=== PATIENT | male | born 1930 | race Hispanic/Latino ===

== ENCOUNTER 2016-09-13 09:23 | Day surgery (SDC) | payer MEDICARE ==
[2016-09-12 07:29] VITALS: BMI 23.2
[2016-09-13] MEDS ORDERED: Dexamethasone 4 mg/1 ml ONE (10:16)
[2016-09-13] MEDS ORDERED: Lidocaine 1% Inj (20ml) ONE ×2 (10:16→10:51)
[2016-09-13] MEDS ORDERED: Bupivacaine 0.5% Inj(30mL) ONE (10:16)
[2016-09-13] MEDS ORDERED: Midazolam 2 MG/2 ML VIAL ONE (11:14)
--- NOTE | 2016-09-13 12:19 | PCM.SURG1 ---
Surgeon's Initial Post Op Note - Surgeon's Notes Surgeon: Dr. Cooper Bravo DPM Foundry Manager: Dr. Kwaku Flood, PGY1 Type of Anesthesia: IV Sedation, Local (Right foot- 5mL's of 1:1 mixture of 0.5 % Marcaine plain to 1% lidocaine plain) Anesthesia Administered By: Dr. 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 Operative Findings: See dictation. Injectibles: 7 mL's of 0.5% Marcaine plain. Materials: 4-0 vicryl; 4-0 prolene Post-Operative Diagnosis: Same as above Operation Performed: Right foot PIPJ arthroplasty with distal PIPJ exostectomy Specimen/Specimens Removed: Rigth 2nd digit proximal phalynx bone Estimated Blood Loss: EBL {In ML}: 1 Blood Products Given: N/A Drains Used: No Drains Post-Op Condition: Good Date of Surgery/Procedure: 09/13/16 Time of Surgery/Procedure: 12:20
[2016-09-13] MEDS ORDERED: Lactated Ringer's 1,000 ML IV SCH (12:20)
[2016-09-13] MEDS ORDERED: Oxycodone/Acetaminophen 5/325 mg Tab PO PRN (12:22)
[2016-09-13 13:16] VITALS: RESP 20; TEMP 97.8
--- NOTE | 2016-09-13 13:33 | RAD ---
PROCEDURE: Right Foot Radiographs. HISTORY: s/p right foot surgery COMPARISON: None. FINDINGS: BONES: Normal. No fracture. JOINTS: There is joint space narrowing and degenerative changes in the 1st MTP joint without angulation SOFT TISSUES: Normal. OTHER FINDINGS: None. IMPRESSION: Joint space narrowing and degenerative changes in the 1st MTP joint
[2016-09-13 13:56] VITALS: BP 144/58; PULSE 56; O2SAT 99
--- NOTE | 2016-09-13 19:50 | OP ---
PROCEDURE DATE: 09/13/2016 PRIMARY SURGEON: Blayne Garcia DPM. MONITORING ANALYST: Kwaku Flood, PGY-1. ANESTHESIOLOGIST: Dr. Allison. ANESTHESIA TYPE: IV sedation with local. PREOPERATIVE DIAGNOSES: Right foot second digit proximal interphalangeal joint hammertoe deformity with proximal interphalangeal joint, medial and lateral exostoses. PREOPERATIVE DIAGNOSES: Right foot second digit proximal interphalangeal joint hammertoe deformity with proximal interphalangeal joint, medial and lateral exostoses. PROCEDURE PERFORMED: Right second digit PIPJ arthroplasty with distal PIPJ exostectomy. INDICATIONS: The patient is an 86-year-old male with the above stated diagnoses. The patient has exhausted all conservative treatment options at this time and is now seeking surgical intervention. The consent was signed after careful explanation of risks, benefits, complications and alternatives. No guarantees were neither given nor implied. PREPARATION: The patient was wheeled into the operating room and placed on the operating room table in a supine position. At this time, a timeout was performed for proper identification of the patient and procedure. IV sedation was then begun. Once IV sedation was confirmed to have been achieved, a local injection of 5 mL of a 1:1 mixture of 0.5% Marcaine plain to 1% lidocaine plain was then injected in a local block type fashion to the right foot. Once anesthesia was confirmed to have been achieved, a supramalleolar tourniquet was placed on the right ankle. The right foot was then prepped and draped in the usual sterile manner. The tourniquet was inflated to 250 mmHg and the procedure began. DESCRIPTION OF PROCEDURE: Attending was present during the entire case. Attention was then directed to the dorsal aspect of the right second digit proximal interphalangeal joint where a 3 cm longitudinal incision was made overlying the proximal interphalangeal joint. This incision, made with a #15 blade, was then extended down through the subcutaneous tissue layers using a # 15 blade. Attention and care was taken to avoid all neurovascular structures and all bleeders were ligated and cauterized using a Bovie as needed. Once at the level of the capsule of the joint, a transverse tenotomy was made and the head of the proximal phalanx was freed of its ligamentous and fibrous attachments. The extensor digitorum longus tendon was freed proximally and distally of its capsular attachments and reflected proximally and distally respectively. At this time, the base of the middle phalanx was examined. Medial and lateral exostoses were appreciated. Periosteum was reflected using a #15 blade to free the medial and lateral condyles of their fibrous and ligamentous attachments. At this time, an oscillating saw was introduced to the operative field and a sagittal plain cut was made of the middle phalanx to alleviate the medial and lateral prominent exostoses. Oscillating saw was then introduced to the head of the proximal phalanx where a sagittal plain cut was made and the head of the proximal phalanx was passed off the operative field to be sent for pathology and microbiology. At this time, bony prominences were removed by hand using a rongeur. Anatomic reduction was appreciated at this point and found to be adequate. The surgical site was then flushed with copious amounts of sterile saline. Capsule and extensor digitorum longus tendon were reapproximated using 4-0 Vicryl. Subcutaneous tissue was reapproximated using 4-0 Vicryl. Skin was reapproximated using 4-0 Prolene. 7mL's of 0.5% Marcaine plain was injected in a local block type fashion to right foot. Incision site was then dressed with Betadine-soaked Adaptic, 4 x 4 gauze, Kerlix and Rodríguez bandage. POSTOPERATIVE CONDITION: The patient was wheeled into the PACU area with vital signs stable and neurovascular status intact to the right foot. The patient will follow up with Dr. Garcia on an outpatient basis. Home care instructions and postoperative pain control medications were dispensed to the patient. Kwaku Flood DPM Blayne Garcia DPM cc: [id number] TT: 09/13/2016 19:50:13 naresh MUHAMMAD
== END 2016-09-13 14:20 | disposition home or self-care (01) ==
LOC: SDS 09:23
PROVIDERS: ATTEND Podiatrist
DX: M20.41 Other hammer toe(s) (acquired), right foot (principal); M89.9 Disorder of bone, unspecified; I10 Essential (primary) hypertension; E78.5 Hyperlipidemia, unspecified
CPT/HCPCS: 28285; 73630; 87070; 87075; 88304; 88311; J0690; J2250; J2405; J3010; J7120 ×2

== ENCOUNTER 2016-09-20 09:19 | Emergency (ER) | payer MEDICARE ==
[2016-09-20 09:19] VITALS: BMI 23.2
[2016-09-20 09:28] VITALS: O2SAT 97
--- NOTE | 2016-09-20 10:33 | ED PDOC ---
Arrival/HPI - General Chief Complaint: Rib Injury Time Seen by Provider: 09/20/16 09:37 Historian: Patient - History of Present Illness Narrative History of Present Illness (Text): 09/20/16 10:29 86yo male with PMHx of hypertension and PVD present with complaint of left sided rib pain s/p trauma 2days ago. States he slipped and fell, while trying to turn around two days ago, and landed on his left side. Notes that he had a surgery for hammer toe last week and has been on Toradol and Percocet, so he didn't have pain s/p trauma. States he didn't take any of his analgesic today and felt the pain for the first time today, when he placed his left arm on top of his bed, while trying to stand up. He denies chest pain, SOB, diaphoresis, hitting head any where, LOC, nausea, vomiting, focal weakness. Past Medical History - Provider Review Nursing Documentation Reviewed: Yes - Past Medical History Past Medical History: Non-Contributing - Cardiac Hx Hypertension: Yes - Pulmonary Hx Respiratory Disorders: No - Neurological Hx Neurological Disorder: Yes Other/Comment: ANEURYSM - HEENT Hx HEENT Disorder: No - Renal Hx Renal Disorder: No - Endocrine/Metabolic Hx Endocrine Disorders: No - Hematological/Oncological Hx Blood Transfusions: Yes (OVER 50YRS AGO) Hx Blood Transfusion Reaction: No - Integumentary Hx Dermatological Disorder: No Hx Basal Cell Carcinoma: No Hx Eczema: No Hx Melanoma: No Hx Psoriasis: No Hx Squamous Cell Carcinoma: No - Musculoskeletal/Rheumatological Hx Musculoskeletal Disorders: Yes Other/Comment: RECENT TOE SURGERY - Gastrointestinal Hx Gastrointestinal Disorders: No - Genitourinary/Gynecological Hx Genitourinary Disorders: No - Psychiatric Hx Psychophysiologic Disorder: No Hx Substance Use: No - Surgical History Hx Orthopedic Surgery: Yes - Anesthesia Hx Anesthesia Reactions: No Hx Malignant Hyperthermia: No - Suicidal Assessment Feels Threatened In Home Enviroment: No Family/Social History - Physician Review Nursing Documentation Reviewed: Yes Family/Social History: Unknown Family HX Smoking Status: Never Smoked 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[employer]) Hx Substance Use: No Hx Substance Use Treatment: No Allergies/Home Meds Allergies/Adverse Reactions: Allergies No Known Allergies Allergy (Verified 09/20/16 09:21) Home Medications: Home Meds Medication Instructions Recorded Confirmed Esomeprazole Magnesium [Nexium] 20 mg PO QAM 05/05/13 09/20/16 Hydrochlorothiazide [HCTZ] 12.5 mg PO DAILY 05/25/15 09/20/16 Lamotrigine [Lamictal] 100 mg PO BID 05/25/15 09/20/16 Trandolapril/Verapamil HCl [Tarka 1 each PO QAM 05/25/15 09/20/16 ER 4-240 mg Tablet] Glucosamine/MSM/Chondroitin A 1 tab PO DAILY 09/07/16 09/20/16 [Triple Flex Caplet] Multivitamin with Minerals [One 1 each PO DAILY 09/07/16 09/20/16 Daily Complete] Review of Systems - Physician Review All systems were reviewed & negative as marked: Yes - Review of Systems Constitutional: Normal Eyes: Normal ENT: Normal Respiratory: Normal Cardiovascular: Normal Gastrointestinal: Normal Genitourinary Male: Normal Musculoskeletal: Arthralgias (Left ribs pain) Skin: Normal Neurological: Normal Endocrine: Normal Hemo/Lymphatic: Normal Psychiatric: Normal Physical Exam Vital Signs Reviewed: Yes Vital Signs Temp Pulse Resp BP Pulse Ox 09/20/16 11:05 98.2 F 70 18 145/68 97 09/20/16 09:23 98.0 F 75 16 162/63 H 97 Temperature: Afebrile Blood Pressure: Normal Pulse: Regular Respiratory Rate: Normal Appearance: Positive for: Well-Appearing, Non-Toxic, Comfortable Pain Distress: None Mental Status: Positive for: Alert and Oriented X 3 - Systems Exam Head: Present: Atraumatic, Normocephalic Pupils: Present: PERRL Extroacular Muscles: Present: EOMI Conjunctiva: Present: Normal Mouth: Present: Moist Mucous Membranes Neck: Present: Normal Range of Motion Respiratory/Chest: Present: Clear to Auscultation, Good Air Exchange, Tender to Palpation (Focal tenderness over lateral left ribs). No: Respiratory Distress, Accessory Muscle Use, Wheezes, Decreased Breath Sounds, Rales, Retracting, Rhonchi, Tachypneic Cardiovascular: Present: Regular Rate and Rhythm, Normal S1, S2. No: Murmurs Abdomen: Present: Normal Bowel Sounds. No: Tenderness, Distention, Peritoneal Signs Back: Present: Normal Inspection Upper Extremity: Present: Normal Inspection. No: Cyanosis, Edema Lower Extremity: Present: Normal Inspection. No: Edema Neurological: Present: GCS=15, CN II-XII Intact, Speech Normal Skin: Present: Warm, Dry, Normal Color. No: Rashes Psychiatric: Present: Alert, Oriented x 3, Normal Insight, Normal Concentration Medical Decision Making ED Course and Treatment: 09/20/16 10:50 Left ribs/chest xray - Nondisplaced fracture of the 9th rib. No PTX noted Xray finding was DW the and was advised to f/u with his PMD. Rx of Tramadol was given. Pt was hemodynamically stable and comfortable in ED. Result was DW the pt. He notes he still have percocet at home and was advised to continue as was directed. TRT ED for any new or worsening symptoms. - RAD Interpretation Radiology Orders: 09/20/16 09:43 RIBS LEFT & PA CHEST [RAD] Stat - Medication Orders Current Medication Orders: Discontinued Medications Tramadol HCl (Ultram) 50 mg PO STAT STA Stop: 09/20/16 09:44 Last Admin: 09/20/16 09:50 Dose: 50 mg Disposition/Present on Arrival - Present on Arrival Any Indicators Present on Arrival: No History of DVT/PE: No History of Uncontrolled Diabetes: No Urinary Catheter: No History of Decub. Ulcer: No History Surgical Site Infection Following: None - Disposition Have Diagnosis and Disposition been Completed?: Yes Diagnosis: Rib sprain, Rib fracture Disposition: HOME/ ROUTINE Disposition Time: 10:55 Patient Plan: Discharge Condition: STABLE Discharge Instructions (ExitCare): Rib Contusion (ED) Additional Instructions: follow up with your Doctor Return to ED for any new or worsening symptoms Prescriptions: traMADol [Ultram] 50 mg PO TID #10 tab Referrals: Frank Jiang MD [Primary Care Provider] - Follow up with primary
[2016-09-20 11:16] VITALS: BP 145/68; PULSE 70; RESP 18; TEMP 98.2
--- NOTE | 2016-09-20 11:28 | RAD ---
PROCEDURE: Radiographs of the Chest and Left Ribs. HISTORY: ribs pain s/p trauma COMPARISON: 08/22/2016. TECHNIQUE: Frontal radiograph of the chest and multiple oblique radiographs of the left ribs were obtained. FINDINGS: LEFT RIBS: There is an acute nondisplaced fracture in the anterior 9th rib. There is diffuse bone demineralization. . LUNGS: The lungs are clear. PLEURA: No pneumothorax or pleural fluid. CARDIOVASCULAR: Normal sized heart. No pulmonary vascular congestion. OTHER FINDINGS: None. IMPRESSION: Acute nondisplaced fracture in the left anterior 9th rib. Clear lungs. No pneumothorax. Important findings were discussed with FRAN Baker on 09/20/2016 at 11:25 a.m.
== END 2016-09-20 11:05 | disposition home or self-care (01) ==
LOC: ED 09:19
DX: S23.41XA Sprain of ribs, initial encounter (principal); S22.32XA Fracture of one rib, left side, initial encounter for closed fracture; W01.0XXA Fall on same level from slipping, tripping and stumbling without subsequent striking against object, initial encounter; I10 Essential (primary) hypertension

== ENCOUNTER 2017-01-21 15:43 | Day surgery (SDC) | payer MEDICARE ==
[2017-01-21 15:43] VITALS: BMI 23.2
[2017-01-21 17:15] LABS: BASO # 0.05 K/mm3 (0.0-2.0); BASO % 0.9 % (0.0-3.0); EOS # 0.1 (0.0-0.7); EOS % 2.4 % (1.5-5.0); GRAN # 2.61 (1.4-6.5); GRAN % 48.3 % (50.0-68.0); HEMATOCRIT 34.8 % (42.0-52.0); LYMPH # 2.2 (1.2-3.4); LYMPH % 40.1 % (22.0-35.0); MEAN CELL VOLUME 94.6 fl (80.0-105.0); MEAN CORPUSCULAR HEMOGLOBIN 30.7 pg (25.0-35.0); MEAN CORPUSCULAR HGB CONC 32.5 g/dl (31.0-37.0); MEAN PLATELET VOLUME 9.6 fl (7.0-11.0); MONO # 0.5 (0.1-0.6); MONO % 8.3 % (1.0-6.0); RED CELL DISTRIBUTION WIDTH 12.9 % (11.5-14.5); WHITE BLOOD COUNT 5.4 10^3/ul (4.5-11.0)
[2017-01-21 17:25] LABS: ALB/GLOB RATIO 1.4 (1.1-1.8); ALKALINE PHOSPHATASE 64 U/L (38-126); ALT/SGPT 24 U/L (7-56); AST/SGOT 29 U/L (17-59); BILIRUBIN,TOTAL 0.4 mg/dL (0.2-1.3); BLOOD UREA NITROGEN 22 mg/dL (7-21); CALCIUM 9.7 mg/dL (8.4-10.5); CARBON DIOXIDE 29 mmol/L (21-33); CHLORIDE 104 mmol/L (98-107); GFR AFRICAN-AMERICAN > 60; GLUCOSE,RANDOM 89 mg/dL (70-110); POTASSIUM 4.3 mmol/L (3.6-5.0); SODIUM 142 mmol/L (132-148); TOTAL PROTEIN 7.5 g/dL (5.8-8.3)
[2017-01-21 17:27] LABS: INR 1.04 (0.93-1.08); PARTIAL THROMBOPLASTIN TIME 28.8 Seconds (25.1-36.5)
--- NOTE | 2017-01-21 17:36 | ED PDOC ---
Arrival/HPI - General Chief Complaint: ENT Problem Time Seen by Provider: 01/21/17 16:09 Historian: Patient, Spouse - History of Present Illness Narrative History of Present Illness (Text): 01/21/17 17:26 86 yo M w/ PMH of hypertension, high cholesterol, TIA and Garcia's esophagus, presents to the emergency room for acute onset of dysphasia which started this afternoon. Patient states for the past week he has had intermittent episodes of dysphasia associated with any meals, he states that he feels that the food would get stuck to the lower part of his chest and afterwards he starts to feel nauseous and vomits. However today he states that he is unable to even drink water without having difficulty swallowing. He went to see his GI doctor today, who sent him to the ER for endoscopy. Otherwise denies any fever, chills, chest pain, shortness of breath, nausea, vomiting, abdominal pain. Has no additional complaints. PMD Apoilnar Arguello Past Medical History - Provider Review Nursing Documentation Reviewed: Yes - Past Medical History Past Medical History: Non-Contributing - Cardiac Hx Hypertension: Yes - Pulmonary Hx Respiratory Disorders: No - Neurological Hx Neurological Disorder: Yes Other/Comment: ANEURYSM - HEENT Hx HEENT Disorder: No - Renal Hx Renal Disorder: No - Endocrine/Metabolic Hx Endocrine Disorders: No - Hematological/Oncological Hx Blood Transfusions: Yes (OVER 50YRS AGO) Hx Blood Transfusion Reaction: No - Integumentary Hx Dermatological Disorder: No Hx Basal Cell Carcinoma: No Hx Eczema: No Hx Melanoma: No Hx Psoriasis: No Hx Squamous Cell Carcinoma: No - Musculoskeletal/Rheumatological Hx Musculoskeletal Disorders: Yes Other/Comment: RECENT TOE SURGERY - Gastrointestinal Other/Comment: Garcia Esophagus - Genitourinary/Gynecological Hx Genitourinary Disorders: No - Psychiatric Hx Psychophysiologic Disorder: No Hx Substance Use: No - Surgical History Hx Orthopedic Surgery: Yes - Anesthesia Hx Anesthesia Reactions: No Hx Malignant Hyperthermia: No - Suicidal Assessment Feels Threatened In Home Enviroment: No Family/Social History - Physician Review Nursing Documentation Reviewed: Yes Family/Social History: Unknown Family HX Smoking Status: Never Smoked 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[employer]) Hx Substance Use: No Hx Substance Use Treatment: No Allergies/Home Meds Allergies/Adverse Reactions: Allergies No Known Allergies Allergy (Verified 09/20/16 09:21) Home Medications: Home Meds Medication Instructions Recorded Confirmed Esomeprazole Magnesium [Nexium] 20 mg PO QAM 05/05/13 01/21/17 Hydrochlorothiazide [HCTZ] 12.5 mg PO DAILY 05/25/15 01/21/17 Lamotrigine [Lamictal] 100 mg PO BID 05/25/15 01/21/17 Trandolapril/Verapamil HCl [Tarka 1 each PO QAM 05/25/15 01/21/17 ER 4-240 mg Tablet] Multivitamin with Minerals [One 1 each PO DAILY 09/07/16 01/21/17 Daily Complete] Review of Systems - Review of Systems Constitutional: Normal. absent: Fatigue, Weight Change, Fevers ENT: Normal, Other (dysphagia). absent: Sore Throat, Rhinorrhea, Sinus Congestion Respiratory: Normal. absent: SOB, Cough, Sputum Cardiovascular: Normal, Chest Pain. absent: Palpitations, Orthopnea Gastrointestinal: Normal. absent: Abdominal Pain, Stool Changes, Nausea, Vomiting Musculoskeletal: Normal, Arthralgias. absent: Back Pain, Neck Pain Skin: Normal. absent: Rash, Pruritis, Skin Lesions Physical Exam Vital Signs Reviewed: Yes Vital Signs Temp Pulse Resp BP Pulse Ox 01/21/17 19:58 98.4 F 66 17 133/84 98 01/21/17 19:43 98.4 F 57 L 16 174/92 H 98 01/21/17 18:57 98.2 F 71 14 187/94 H 96 01/21/17 18:49 97.8 F 71 99 H 164/78 H 18 L 01/21/17 18:45 98 01/21/17 17:45 18 96 01/21/17 17:30 98.7 F 62 14 147/67 91 L 01/21/17 17:19 16 01/21/17 15:43 98 F 69 16 159/73 H 99 Appearance: Positive for: Well-Appearing, Non-Toxic, Comfortable Pain Distress: None Mental Status: Positive for: Alert and Oriented X 3 - Systems Exam Head: Present: Atraumatic, Normocephalic Mouth: Present: Moist Mucous Membranes Pharnyx: Present: Normal. No: ERYTHEMA, EXUDATE, Strider Neck: Present: Normal Range of Motion. No: MIDLINE TENDERNESS Respiratory/Chest: Present: Clear to Auscultation, Good Air Exchange. No: Respiratory Distress, Accessory Muscle Use, Wheezes, Rhonchi Cardiovascular: Present: Regular Rate and Rhythm, Normal S1, S2. No: Murmurs Abdomen: No: Tenderness, Distention, Rebound Back: Present: Normal Inspection. No: CVA Tenderness, Midline Tenderness Upper Extremity: Present: Normal Inspection, Normal ROM, NORMAL PULSES, Neurovascularly Intact. No: Edema, Tenderness Lower Extremity: Present: Normal Inspection, NORMAL PULSES, Neurovascularly Intact, Capillary Refill < 2 s. No: Edema, Tenderness Neurological: Present: GCS=15, CN II-XII Intact, Speech Normal, Motor Func Grossly Intact, Normal Sensory Function Skin: Present: Warm, Dry, Normal Color. No: Rashes Psychiatric: Present: Alert, Oriented x 3, Normal Insight, Normal Concentration Medical Decision Making ED Course and Treatment: 01/21/17 17:36 86 yo M w/ PMH of hypertension, high cholesterol, TIA and Garcia's esophagus, presents to the emergency room for acute onset of dysphasia which started this afternoon. Plan: -- Labs -- IV fluids -- Urinalysis -- EKG -- CXR -- Reassess and disposition 01/21/17 18:21 Dr. Arguello called. Labs reviewed and are wnl. On re-evaluation, patient is sitting comfortably in no acute distress. Breathing is easy and unlabored, no drooling, speaking in full sentences, able to swallow his saliva. Patient has no additional complaints. Case d/w Dr. Arguello, will come and evaluate the patient. Dr. Arguello arrived to the ER and made arrangements for the patient to go to endoscopy. - Lab Interpretations Lab Results: 01/21/17 17:01 01/21/17 17:01 Lab Results 01/21/17 18:34: Blood Type Confirm A POSITIVE 01/21/17 17:48: Blood Type A POSITIVE, Antibody Screen Negative, BBK History Checked No verified bt 01/21/17 17:01: Sodium 142, Potassium 4.3, Chloride 104, Carbon Dioxide 29, Anion Gap 13, BUN 22 H, Creatinine 1.3, Est GFR ( Amer) > 60, Est GFR ( Non-Af Amer) 52, Random Glucose 89, Calcium 9.7, Total Bilirubin 0.4, AST 29, ALT 24, Alkaline Phosphatase 64, Total Protein 7.5, Albumin 4.4, Globulin 3.1, Albumin/Globulin Ratio 1.4 01/21/17 17:01: PT 11.3, INR 1.04, APTT 28.8 01/21/17 17:01: WBC 5.4, RBC 3.68, Hgb 11.3 L, Hct 34.8 L, MCV 94.6, MCH 30.7, MCHC 32.5, RDW 12.9, Plt Count 228, MPV 9.6, Gran % 48.3 L, Lymph % (Auto) 40.1 H, [place] % (Auto) 8.3 H, Eos % (Auto) 2.4, Baso % (Auto) 0.9, Gran # 2.61, Lymph # 2.2, [place] # 0.5, Eos # 0.1, Baso # 0.05 - RAD Interpretation Radiology Orders: 01/21/17 16:40 CHEST TWO VIEWS (PA/LAT) [RAD] Stat - Medication Orders Current Medication Orders: Sodium Chloride (Sodium Chloride 0.9%) 1,000 mls @ 100 mls/hr IV .Q10H [facility] / CAREERS ADVISER / Resident Statement MD/DO has reviewed & agrees with the documentation as recorded. Disposition/Present on Arrival - Present on Arrival Any Indicators Present on Arrival: No History of DVT/PE: No History of Uncontrolled Diabetes: No Urinary Catheter: No History of Decub. Ulcer: No History Surgical Site Infection Following: None - Disposition Have Diagnosis and Disposition been Completed?: Yes Diagnosis: Dysphagia Disposition: HOSPITALIZED Disposition Time: 18:30 (Patient went to endoscopy) Patient Plan: Observation (after endoscopy, patient went to med/surg floor for further inpatient observation, until d/c by Dr. Arguello) Patient Problems: Current Active Problems Problem Status Onset Dysphagia Acute Condition: STABLE
[2017-01-21] MEDS ORDERED: Benzocaine/Butamben/Tetracai 14-2-2% TOP Spray TOP ONE (18:59)
[2017-01-21] MEDS ORDERED: Midazolam 2 MG/2 ML VIAL ONE (19:00)
[2017-01-21 19:49] VITALS: TEMP 98.4; O2SAT 98
[2017-01-21] MEDS ORDERED: Sodium Chloride 0.9% 1,000 ML IV SCH (20:00)
[2017-01-21 20:06] VITALS: BP 133/84; PULSE 66; RESP 17
--- NOTE | 2017-01-22 08:26 | RAD ---
HISTORY: dysphagia COMPARISON: 09/20/2016 TECHNIQUE: Chest PA and lateral FINDINGS: LUNGS: No active pulmonary disease. PLEURA: No significant pleural effusion identified. No pneumothorax apparent. CARDIOVASCULAR: Normal. OSSEOUS STRUCTURES: No significant abnormalities. VISUALIZED UPPER ABDOMEN: Normal. OTHER FINDINGS: None. IMPRESSION: No active disease.
--- NOTE | 2017-01-22 09:55 | CARD ---
APPROVED REPORT EKG Measurement Heart [id number] <Conclusion> Sinus rhythm with 1st degree AV block No change
--- NOTE | 2017-01-22 10:22 | CON ---
DATE: 01/21/2017 REASON FOR CONSULTATION: Difficulty in swallowing. HISTORY OF PRESENT ILLNESS: This is an 86-year-old patient with a long history of Garcia's esophagus, history of extremely tortuous esophagus, presented with acute worsening of difficulty in swallowing for the past few weeks and this started more than 2 weeks ago. He had some broccoli and he had some difficulty after that since then the patient is having more difficulty in swallowing. The patient initially came to the office, the patient was mentioning that he was not able to drink even liquids. He was able to take some oat meal in the morning after that he was not able to hardly swallow liquids. The patient was sent to the emergency room where he was reevaluated. No history of any abdominal pain. PAST MEDICAL HISTORY: Other past medical history is significant for hypertension, TIA, dyslipidemia. FAMILY HISTORY: Noncontributory. SOCIAL HISTORY: Noncontributory. No smoking. Wine occasionally. REVIEW OF SYSTEMS: Positive as above. Other systems reviewed. PHYSICAL EXAMINATION: GENERAL: The patient is lying on the bed, not in acute distress. VITAL SIGNS: Temperature is 97.8, pulse 71, blood pressure is 164/78, O2 saturation is 98%. HEENT: Atraumatic, anicteric. NECK: Supple. HEART: S1 and S2 heard. LUNGS: Bilateral air entry present. ABDOMEN: Soft, bowel sounds present. No tenderness. EXTREMITIES: No edema. No cyanosis. NEUROLOGIC: Alert and oriented. Moves all the extremities. LABORATORY DATA: Review of the labs, hemoglobin 11.3, hematocrit 34.8, WBC 5.4, platelets 228, BUN 22, creatinine 1.3. IMPRESSION: This 86-year-old patient with tortuous esophagus, Garcia's esophagus, large hiatus hernia, presented with progressive worsening of the dysphagia over past few weeks. The patient acutely not able to swallow this morning. Rule out foreign body impaction. Rule out malignancy. The patient would benefit from the upper gastrointestinal endoscopy. Risks, benefits, and alternatives explained. Informed consent was obtained. score is 2. Thank you very much for allowing us to participate in the care of the patient. Deep Arguello MD
== END 2017-01-21 22:00 | disposition home or self-care (01) ==
LOC: ED 15:43 → ENDO 21:13 → 5RNO 21:14 → ENDO 22:00
PROVIDERS: ATTEND Internal Medicine Gastroenterology
DX: R13.10 Dysphagia, unspecified (principal); I10 Essential (primary) hypertension; E78.00 Pure hypercholesterolemia, unspecified; K22.70 Barrett's esophagus without dysplasia; R40.2412 Glasgow coma scale score 13-15, at arrival to emergency department; Z86.73 Personal history of transient ischemic attack (TIA), and cerebral infarction without residual deficits; K22.10 Ulcer of esophagus without bleeding; K44.9 Diaphragmatic hernia without obstruction or gangrene; K22.9 Disease of esophagus, unspecified
CPT/HCPCS: 43235; 71020; 80053; 85025; 85610; 85730; 86850; 86900; 93005; 99285; J2250; J3010; J7040

== ENCOUNTER 2017-04-23 07:47 | Day surgery (SDC) | payer MEDICARE ==
[2017-04-15 12:25] VITALS: BMI 21.2
[2017-04-23] MEDS ORDERED: Sodium Chloride 0.9% 1,000 ML IV SCH (09:00)
[2017-04-23] MEDS ORDERED: Propofol 10 mg/ml Inj (20 ML) ONE (10:00)
[2017-04-23] MEDS ORDERED: Etomidate 40 MG/20 ML ML IV ONE (10:39)
[2017-04-23 11:30] VITALS: BP 133/75; PULSE 85; RESP 18; TEMP 97.7; O2SAT 94
== END 2017-04-23 12:07 | disposition home or self-care (01) ==
LOC: ENDO 07:47
PROVIDERS: ATTEND Internal Medicine Gastroenterology
DX: K22.2 Esophageal obstruction (principal); K22.70 Barrett's esophagus without dysplasia; K44.9 Diaphragmatic hernia without obstruction or gangrene; R13.10 Dysphagia, unspecified; I10 Essential (primary) hypertension; E78.00 Pure hypercholesterolemia, unspecified; G40.909 Epilepsy, unspecified, not intractable, without status epilepticus; D53.9 Nutritional anemia, unspecified; Z87.11 Personal history of peptic ulcer disease
CPT/HCPCS: 43239; 43249; 88305; 88312; J2704; J7040 ×2

== ENCOUNTER 2018-06-10 09:45 | Outpatient (CLI) | payer MEDICARE | END 2018-06-10 09:46 | disposition home or self-care (01) | LOC: RAD 09:45 ==